=== PATIENT | male | born 1960 | race Native Hawaiian/Other Pacific Islander ===

== ENCOUNTER 2017-09-23 11:06 | Outpatient (CLI) | payer BC | END 2017-09-23 19:18 | disposition home or self-care (01) | LOC: RAD 11:06 | DX: J20.8 Acute bronchitis due to other specified organisms (principal) ==

== ENCOUNTER 2018-04-08 07:37 | Day surgery (SDC) | payer BC ==
[2018-04-08 08:37] LABS: PLATELET COUNT 243 K/uL (142-355)
[2018-04-08 08:51] LABS: POTASSIUM 3.8 mmol/L (3.6-5.2)
== END 2018-04-08 10:45 | disposition home or self-care (01) ==
LOC: OR 07:37
PROVIDERS: Student in an Organized Health Care Education/Training Program
PROC: 0DBP8ZZ Excision of Rectum, Via Natural or Artificial Opening Endoscopic (ICD-10-PCS; principal; 2018-04-08)
DX: K57.30 Diverticulosis of large intestine without perforation or abscess without bleeding (principal); K62.1 Rectal polyp; K64.8 Other hemorrhoids; Z12.11 Encounter for screening for malignant neoplasm of colon; R93.5 Abnormal findings on diagnostic imaging of other abdominal regions, including retroperitoneum
CPT/HCPCS: 80053; 85027; J2704

== ENCOUNTER 2018-09-01 08:30 | Outpatient (CLI) | payer BC | END 2018-09-01 19:41 | disposition home or self-care (01) | LOC: RAD 08:30 | DX: M54.17 Radiculopathy, lumbosacral region (principal) ==

== ENCOUNTER 2019-02-04 07:49 | Day surgery (SDC) | payer BC | END 2019-02-04 10:06 | disposition home or self-care (01) | LOC: OR 07:49 | PROC: 3E0R33Z Introduction of Anti-inflammatory into Spinal Canal, Percutaneous Approach (ICD-10-PCS; principal; 2019-02-04) | PROC: B01BYZZ Fluoroscopy of Spinal Cord using Other Contrast (ICD-10-PCS; 2019-02-04) | DX: M51.16 Intervertebral disc disorders with radiculopathy, lumbar region (principal) | CPT/HCPCS: J1020 ==

== ENCOUNTER 2019-03-25 08:21 | Day surgery (SDC) | payer BC | END 2019-03-25 10:20 | disposition home or self-care (01) | LOC: OR 08:21 | PROC: 3E0R33Z Introduction of Anti-inflammatory into Spinal Canal, Percutaneous Approach (ICD-10-PCS; principal; 2019-03-25) | PROC: B01BYZZ Fluoroscopy of Spinal Cord using Other Contrast (ICD-10-PCS; 2019-03-25) | DX: M51.16 Intervertebral disc disorders with radiculopathy, lumbar region (principal) | CPT/HCPCS: J1020 ==

== ENCOUNTER 2019-05-05 08:24 | Outpatient (CLI) | payer BC ==
[~2019-05-05] VITALS: Ht 182.9 cm; Wt 136.5 kg
== END 2019-05-05 22:24 | disposition home or self-care (01) ==
LOC: NM 08:24
DX: R07.9 Chest pain, unspecified (principal)
CPT/HCPCS: A9500; J2785

== ENCOUNTER 2019-06-04 09:46 | Outpatient (CLI) | payer BC ==
[2019-06-04 10:31] LABS: PLATELET COUNT 224 K/uL (142-355)
== END 2019-06-04 20:28 | disposition home or self-care (01) ==
LOC: LABW 09:46
PROVIDERS: Specialist
DX: Z01.810 Encounter for preprocedural cardiovascular examination (principal); R93.1 Abnormal findings on diagnostic imaging of heart and coronary circulation
CPT/HCPCS: 36415; 80053; 85027

== ENCOUNTER 2019-06-11 07:59 | Outpatient (CLI) | payer BC ==
[2019-06-11 08:36] LABS: POTASSIUM 4.1 mmol/L (3.6-5.2)
== END 2019-06-11 22:29 | disposition home or self-care (01) ==
LOC: CT 07:59
PROVIDERS: Neurological Surgery
DX: M54.16 Radiculopathy, lumbar region (principal); Z79.899 Other long term (current) drug therapy; R35.8 Other polyuria
CPT/HCPCS: 36415; 80048

== ENCOUNTER 2020-05-02 14:01 | Outpatient (CLI) | payer BC | END 2020-05-02 20:09 | disposition home or self-care (01) | LOC: RAD 14:01 | DX: Z01.818 Encounter for other preprocedural examination (principal) ==

== ENCOUNTER 2021-07-25 08:29 | Outpatient (CLI) | payer OTHER ==
[~2021-07-25] VITALS: Ht 180.3 cm; Wt 133.8 kg
== END 2021-07-25 19:33 | disposition home or self-care (01) ==
LOC: NM 08:29
PROVIDERS: ATTEND Specialist
DX: I25.10 Atherosclerotic heart disease of native coronary artery without angina pectoris (principal); R53.83 Other fatigue; I10 Essential (primary) hypertension
CPT/HCPCS: A9500; J2785